=== PATIENT | female | born 1980 | race Caucasian/White ===

== ENCOUNTER → 2024-09-24 | Outpatient (CLI) | payer BC, SELFPAY ==
--- NOTE | 2024-09-24 14:00 | XR_ITS ---
Examination: Breast ultrasound complete, bilateral Date and time of exam: September 24, 2024 1405 hours INDICATIONS: Bilateral breast sonography March 30, 2024 right breast 10:00 nodule 8 x 8 mm Technique: Real-time grayscale ultrasonographic imaging bilateral breasts, including all 4 quadrants as well as nipple retroareolar and axillary regions. Findings: Sonographic images right breast Multiple benign cysts 10:00 nodule lobular margins 9 x 10 mm Sonographic images left breast Retroareolar cyst 7 x 7 mm No solid nodules Smaller breast cysts IMPRESSION: BI-RADS Category 3: Probably benign findings Recommend 1 additional 6 month right breast sonogram follow-up to document stability of 10:00 nodule right breast
--- NOTE | 2024-09-24 15:00 | XR_ITS ---
Examination: Screening digital mammography, bilateral Computer aided detection 3-D breast Tomosynthesis, bilateral Date and time of exam: September 24, 2024 1428 hours Compared to mammograms dating to November 01, 2017 Indication: Screening Technique: Nonmagnified MLO, CC views of the breasts to been obtained, reconstructed from 3-D Tomosynthesis images. R2 computer aided detection program utilized for evaluation of suspicious masses and/or abnormal calcifications. 3-D Tomosynthesis images obtained. Findings: The breasts are heterogeneously dense, which may obscure small masses Benign calcifications. No interval suspicious masses Impression: BI-RADS category II: Benign Findings. Recommend 1 year follow-up mammogram.
== END | disposition home or self-care (01) ==
LOC: CDIM 13:40
PROVIDERS: Referring Provider Specialist; Visit Provider Specialist
DX: Z12.31 Encounter for screening mammogram for malignant neoplasm of breast (principal); R92.323 Mammographic fibroglandular density, bilateral breasts; R92.1 Mammographic calcification found on diagnostic imaging of breast; N63.11 Unspecified lump in the right breast, upper outer quadrant
CPT/HCPCS: 76641; 77063; 77067

== ENCOUNTER 2024-10-10 09:07 | Emergency (ER) | payer BC, SELFPAY ==
[2024-10-10 09:22] VITALS: BP 118/72; PULSE 82; RESP 18; TEMP 36.8; O2SAT 98; BMI 21.9
--- NOTE | 2024-10-10 09:30 | XR_ITS ---
Examination: Ultrasound soft tissue left lateral TECHNIQUE: Grayscale sonographic images soft tissue left lateral Date and time: October 10, 2024 0956 hours INDICATIONS: Palpable lump left neck note is beginning 3 days ago FINDINGS: Lymph nodes at the area concern lateral left neck 1.6 x 1.1 cm, 1.4 x 0.8 cm, 1.6 x 1.0 cm IMPRESSION: Significant left cervical lymphadenopathy, recommend elective CT soft tissue neck post intravenous contrast follow-up
--- NOTE | 2024-10-10 09:31 | PD.EDRME ---
Rapid Medical Screening Exam RME Arrival date/time: 10/10/24 09:07 43-year-old female presents to the emergency department today for complaints of left-sided neck cyst patient reports that she was massaging the area and almost passed out Chief Complaint: Syncope / Near Syncope Vital signs: Vital Signs Temperature 98.2 F 10/10/24 09:22 Pulse Rate 82 10/10/24 09:22 Respiratory Rate 18 10/10/24 09:22 Blood Pressure 118/72 10/10/24 09:22 Pulse Oximetry (%) 98 10/10/24 09:22 Oxygen Delivery Method Room Air 10/10/24 09:22
[2024-10-10 10:35] LABS: Basophils % (Auto) 1 % (0-2.5); Eosinophils # (Auto) 0.1 Thou/mm3 (0.0-0.5); Eosinophils % (Auto) 2 % (0-10); Hematocrit 33.7 % (36.0-46.0); Hemoglobin 11.5 g/dL (12.0-16.0); Immature Granulocytes % (Auto) 0 % (0-0); Immature Granulocytes Auto 0.01 Thou/mm3 (0.00-0.00); Lymphocytes # (Auto) 1.4 Thou/mm3 (1.0-4.8); Lymphocytes % (Auto) 23 % (10-50); Mean Corpuscular HGB Conc 34.1 g/dl (31.0-37.0); Mean Corpuscular Volume 88 fL (80-100); Monocytes # (Auto) 0.5 Thou/mm3 (0.0-0.8); Monocytes % (Auto) 8 % (0-12); Neutrophils # (Auto) 3.8 Thou/mm3 (1.8-7.7); Neutrophils % (Auto) 66 % (37-80); Nucleated Red Blood Cell % 0 /100 WBC (0); Platelet Count 254 Thou/mm3 (140-440); RDW Standard Deviation 40.2 fL (36.4-46.3); Red Blood Count 3.83 Miln/mm3 (4.00-5.20); White Blood Count 5.8 Thou/mm3 (3.6-11.0)
--- NOTE | 2024-10-10 10:45 | PD.EDADULT ---
ED General RME/HPI General Chief complaint: Syncope / Near Syncope Stated complaint: ALMOST PASSED OUT PUSHING ON LEFT NECK LUMP Time Seen by Provider: 10/10/24 10:32 Arrival date/time: 10/10/24 09:07 RME / HPI RME / HPI narrative: 10/10/24 09:07 43-year-old female presents to the emergency department today for complaints of left-sided neck cyst patient reports that she was massaging the area and almost passed out Related Data Home Medications ?Medication ?Instructions ?Recorded ?Confirmed Vitamin * 1 tab PO QDAY #0 tabs 08/08/15 Allergies Allergy/AdvReac Type Severity Reaction Status Date / Time NKA* Allergy Uncoded 10/10/24 09:11 Course Orders Category Date Time Status US soft tissue head neck Stat Exams 10/10/24 09:30 Completed CBC Stat Lab 10/10/24 10:06 Received CMP [Comprehensive Metabolic Panel] Stat Lab 10/10/24 10:06 Received CRP [C-Reactive Protein] Stat Lab 10/10/24 10:06 Received HCG,Qualitative Serum Stat Lab 10/10/24 10:06 Received Vital Signs Vital signs: Vital Signs Temperature 98.2 F 10/10/24 09:22 Pulse Rate 82 10/10/24 09:22 Respiratory Rate 18 10/10/24 09:22 Blood Pressure 118/72 10/10/24 09:22 Pulse Oximetry (%) 98 10/10/24 09:22 Oxygen Delivery Method Room Air 10/10/24 09:22 Discharge Plan Prescriptions/Referrals Prescriptions/Med Rec: No Action Vitamin * 1 EACH tablet 1 tab PO QDAY Qty: 0 Patient/Caregiver Discharge Instructions Print Language: Slovenian MDM Dispositon Disposition: Transfer
[2024-10-10 10:52] LABS: HCG,Qualitative Serum Negative
[2024-10-10 11:10] LABS: Alanine Aminotransferase 8 U/L (10-49); Albumin, Serum 4.1 gm/dL (3.5-5.0); Albumin/Globulin Ratio 1.9 (1.2-2.2); Alkaline Phosphatase < 20 U/L (46-116); Anion Gap 9 (7-16); Aspartate Amino Transferase 13 U/L (0-34); BUN/Creatinine Ratio 9 Ratio (12-20); Bilirubin,Total 0.5 mg/dL (0.3-1.2); Blood Urea Nitrogen 7 mg/dL (9-23); C-Reactive Protein < 0.5 mg/dL (0.0-0.9); Calcium 8.6 mg/dL (8.3-10.6); Calcium (Corrected) 8.6 mg/dL (8.5-10.1); Carbon Dioxide 24.1 mMol/L (20.0-31.0); Chloride 108 mMol/L (98-107); Creatinine (Component) 0.8 mg/dL (0.6-1.3); Estimated Creatinine Clearance 75.8 mL/min (>60); Globulin 2.2 gm/dL (2.3-3.5); Glucose 101 mg/dL (74-106); Osmolality,Calculated 279 (275-295); Sodium 141 mMol/L (136-145); Total Protein 6.3 gm/dL (5.7-8.2); eGFR > 60 See Note
--- NOTE | 2024-10-10 11:15 | PD.EDADULT ---
ED General RME/HPI General Chief complaint: Syncope / Near Syncope Stated complaint: ALMOST PASSED OUT PUSHING ON LEFT NECK LUMP Time Seen by Provider: 10/10/24 10:32 Arrival date/time: 10/10/24 09:07 RME / HPI RME / HPI narrative: 43-year-old female presents to the emergency department today for complaints of left-sided neck cyst that she noticed couple days ago. She reports that she was massaging the area and almost passed out. She also reported that she had sore throat about 5 days ago. Currently, she denies any headache, lightheadedness, nausea or vomiting, fever or chills, sore throat, chest pain, SOB, abdominal pain, any changes in urinary or bowel habit or leg swelling. Related Data Home Medications ?Medication ?Instructions ?Recorded ?Confirmed Vitamin * 1 tab PO QDAY #0 tabs 08/08/15 Previous Rx's ?Medication ?Instructions ?Recorded ibuprofen 400 mg tablet 400 mg PO Q8H PRN pain #10 tabs 10/10/24 Allergies Allergy/AdvReac Type Severity Reaction Status Date / Time NKA* Allergy Uncoded 10/10/24 09:11 Review of Systems Review of Systems Systems Reviewed: All systems reviewed, normal except as documented ED Exam Narrative Physical exam: General: No acute distress, Alert and Oriented x 3 HEENT: Moist mucous membranes, oropharynx clear, a lump of size 1.5 x 1.5 cm over left side of neck Neck: Supple, No masses, No JVD CVS: S1S2 Regular rate and rhythm, No murmurs, rubs or gallops Lungs: Clear to auscultation with no accessory use, no wheeze no rhonchi Abd: Soft, NT/ND, +BS, no organomegaly Ext: No edema, warm and well perfused Skin: No rash Psych: Appropriate mood and affect Course Quality Measures none Orders Category Date Time Status US soft tissue head neck Stat Exams 10/10/24 09:30 Completed CBC Stat Lab 10/10/24 10:06 Completed CMP [Comprehensive Metabolic Panel] Stat Lab 10/10/24 10:06 Completed CRP [C-Reactive Protein] Stat Lab 10/10/24 10:06 Completed HCG,Qualitative Serum Stat Lab 10/10/24 10:06 Completed Vital Signs Vital signs: Vital Signs Temperature 98.2 F 05/21/25 09:22 Pulse Rate 82 10/10/24 09:22 Respiratory Rate 18 10/10/24 09:22 Blood Pressure 118/72 10/10/24 09:22 Pulse Oximetry (%) 98 10/10/24 09:22 Oxygen Delivery Method Room Air 10/10/24 09:22 Discharge Plan Plan Patient Disposition: HOME (Self Care) Prescriptions/Referrals Prescriptions/Med Rec: New ibuprofen 400 mg tablet 400 mg PO Q8H PRN (Reason: pain) Qty: 10 0RF No Action Vitamin * 1 EACH tablet 1 tab PO QDAY Qty: 0 Problem List Clinical Impression: Reactive cervical lymphadenopathy, Dizziness Patient/Caregiver Discharge Instructions Discharge Activity: activity as tolerated Education Materials: Lymphadenopathy Additional Instructions: Please follow-up with your PCP within 2 week of discharge and if your pain and swelling does not improve over the neck, request for further workup. You have been started on: -Ibuprofen 400 Mg up to 3 times a day for pain -Recommended to stay rehydrated -Recommended to return back to emergency department if your symptoms persists or worsens Print Language: [place] Stand Alone Forms: [employer] Award Info., Work/School Release, Patient Portal Info Letter MD Attestation Attestation I, Salomón Swenson MD, have reviewed the history, exam, and assessment of the patient. I have evaluated the patient independently and agree with the plan of care documented by [ ]. All diagnostic studies were reviewed and discussed. I confirm the diagnosis as documented by the Resident. I was present during the Medical Decision Making for this patient. The patient's plan of care was created between myself and the Resident and consistent with our discussion of the patient's case. I saw this patient fully he is a healthy 43-year-old lady who comes in with adenopathy in her left posterior cervical chain that when she palpated this it was tender and she got a dizzy episode that has resolved. Patient reports having some viral illness several days before this but sore throat and cough are resolved and she works in a daycare center. The rest of her physical exam is entirely normal as should be documented by the resident. She was advised this most likely benign reactive adenopathy from a viral illness and that in 7 to 10 days should follow-up with her doctor if it has not resolved and we expect this to resolve on its own with no further workup required. MDM Narrative MDM hospital course: 43-year-old female presents to the emergency department today for complaints of left-sided neck cyst that she noticed couple days ago. She reports that she was massaging the area and almost passed out. She also reported that she had sore throat about 5 days ago. Currently, she denies any headache, lightheadedness, nausea or vomiting, fever or chills, sore throat, chest pain, SOB, abdominal pain, any changes in urinary or bowel habit or leg swelling. Her vitals were BP 118/72, pulse 82, RR 18, temperature 98.2 saturating 98% on room air. Labs revealed hemoglobin 11.5, chemistry panel revealed chloride 108 with other parameters fairly stable. US soft tissue of left neck revealed Left cervical lymphadenopathy of size 1.6 x 1.1 cm, 1.4 x 0.8 cm, and 1.6 x 1.0 cm. EKG EKG not done Lab Interpretation Lab(s) interpretation(s): See above Imaging Provider imaging interpretation(s): See above Diagnosis Differential diagnosis: Reactive lymphadenopathy, lipoma, and carotid sinus hypersensitivity Most likely dx, and/or detailed dx discussion: Reactive lymphadenopathy Dispositon Disposition: Discharge Home
[2024-10-10 11:52] VITALS: BP 126/78; PULSE 61; RESP 18; TEMP 36.6; O2SAT 98
== END 2024-10-10 12:00 | disposition home or self-care (01) ==
PROVIDERS: Nurse Practitioner Primary Care; Emergency Provider Student in an Organized Health Care Education/Training Program; PCP Family Medicine
DX: R59.0 Localized enlarged lymph nodes (principal); R42 Dizziness and giddiness
CPT/HCPCS: 36415; 76536; 80053; 84703; 85025; 86140; 99284

== ENCOUNTER → 2024-11-20 | Outpatient (CLI) | payer BC, SELFPAY ==
[2024-11-21 11:20] LABS: BVAG Candida Negative (Negative); Bacterial Vaginosis Markers Negative (Negative); Candida glabrata Negative (Negative); Candida krusei PCR Negative (Negative); Trichomonas Negative (Negative)
== END | disposition home or self-care (01) ==
LOC: SLDO 14:15
PROVIDERS: Referring Provider Specialist; Visit Provider Specialist
DX: B37.89 Other sites of candidiasis (principal); N76.0 Acute vaginitis; A59.01 Trichomonal vulvovaginitis
CPT/HCPCS: 81514

== ENCOUNTER → 2025-05-21 | Outpatient (CLI) | payer BC, SELFPAY ==
[2025-05-21 12:41] LABS: Collection Type, Urine Clean Catch
[2025-05-21 13:19] LABS: Basophils # (Auto) 0.0 Thou/mm3 (0.0-0.2); Basophils % (Auto) 0 % (0-2.5); Eosinophils # (Auto) 0.1 Thou/mm3 (0.0-0.5); Eosinophils % (Auto) 2 % (0-10); Hematocrit 37.0 % (36.0-46.0); Hemoglobin 11.9 g/dL (12.0-16.0); Immature Granulocytes Auto 0.01 Thou/mm3 (0.00-0.00); Lymphocytes # (Auto) 1.3 Thou/mm3 (1.0-4.8); Lymphocytes % (Auto) 26 % (10-50); Mean Corpuscular HGB Conc 32.2 g/dl (31.0-37.0); Mean Corpuscular Hemoglobin 28.7 pg (25.0-35.0); Mean Corpuscular Volume 89 fL (80-100); Monocytes # (Auto) 0.4 Thou/mm3 (0.0-0.8); Monocytes % (Auto) 8 % (0-12); Neutrophils # (Auto) 3.4 Thou/mm3 (1.8-7.7); Neutrophils % (Auto) 65 % (37-80); Nucleated Red Blood Cell # 0.00 Thou/mm3 (0.00-0.00); Nucleated Red Blood Cell % 0 /100 WBC (0); Platelet Count 300 Thou/mm3 (140-440); RDW Standard Deviation 41.1 fL (36.4-46.3); Red Blood Count 4.14 Miln/mm3 (4.00-5.20); White Blood Count 5.2 Thou/mm3 (3.6-11.0)
[2025-05-21 13:22] LABS: Bilirubin,Urine Negative (Negative); Blood,Urine Negative (Negative); Clarity,Urine Clear (Clear/Hazy); Color,Urine Yellow (Lt Yel-Yel); Culture Indicated,Urine Not Indicated; Glucose, Urine Negative (Negative); Ketones,Urine Negative (Negative); Leukocyte Esterase,Urine Positive (Negative); Nitrite,Urine Negative (Negative); PH,Urine 6.5 (5.0-7.0); Protein,Urine Negative (Neg - Trace); RBC,Urine 2 /hpf (0-3); Specific Gravity,Urine 1.022 (1.001-1.035); Squamous Epithelial Cell,Urine 2 /hpf (0-5); Urobilinogen,Urine Negative mg/dL (0.0-1.0); WBC,Urine 1 /hpf (0-5)
[2025-05-21 13:37] LABS: Alanine Aminotransferase 16 U/L (10-49); Albumin, Serum 4.7 gm/dL (3.5-5.0); Albumin/Globulin Ratio 2.1 (1.2-2.2); Alkaline Phosphatase < 20 U/L (46-116); Anion Gap 10 (7-16); Aspartate Amino Transferase 17 U/L (0-34); BUN/Creatinine Ratio 13 Ratio (12-20); Bilirubin,Total 0.6 mg/dL (0.3-1.2); Blood Urea Nitrogen 10 mg/dL (9-23); Calcium 9.4 mg/dL (8.3-10.6); Calcium (Corrected) 9.4 mg/dL (8.5-10.1); Carbon Dioxide 28.5 mMol/L (20.0-31.0); Cardiac Risk Estimate 3.7 RATIO (3.7-5.6); Chloride 105 mMol/L (98-107); Cholesterol 245 mg/dL (132-200); Creatinine (Component) 0.8 mg/dL (0.6-1.3); Free T4 (Free Thyroxine) 1.11 ng/dL (0.89-1.76); Globulin 2.2 gm/dL (2.3-3.5); Glucose 94 mg/dL (74-106); HDL Cholesterol 67 mg/dL (40-60); LDL Cholesterol,Calculated 160 mg/dL (0-130); Osmolality,Calculated 283 (275-295); Potassium 4.2 mMol/L (3.4-5.1); Sodium 143 mMol/L (136-145); Thyroid Stimulating Hormone 0.72 uIU/mL (0.55-4.78); Total Protein 6.9 gm/dL (5.7-8.2); Triglycerides 91 mg/dL (30-150); Vitamin B12 393 pg/mL (211-911); Vitamin D 25 Hydroxy Total 22.6 ng/mL (7.3-40.2); eGFR > 60 See Note
[2025-05-21 13:38] LABS: Iron 139 mcg/dL (50-170); Percent Iron Saturation 36 % (20-55); Total Iron Binding Capacity 378 mcg/dL (250-425); Unsaturated Iron Binding 239 (225-295)
== END | disposition home or self-care (01) ==
LOC: COPL 11:46
PROVIDERS: PCP Family Medicine; Referring Provider Registered Nurse; Visit Provider Registered Nurse
DX: R63.4 Abnormal weight loss (principal); E53.8 Deficiency of other specified B group vitamins; D64.9 Anemia, unspecified; E78.5 Hyperlipidemia, unspecified
CPT/HCPCS: 36415; 80053; 80061; 81001; 82306; 82607; 83540; 83550; 84439; 84443; 85025